=== PATIENT | male | born 1945 | race Caucasian/White ===

== ENCOUNTER 2019-07-04 10:30 | Outpatient (AMBR) | payer MEDICARE, SELFPAY ==
--- NOTE | 2019-06-16 15:10 | PT.OIERPT ---
PT OP Initial Eval Patient Information Visit Reasons: right shoulder pain Medical Diagnosis: Z47.89 Treatment Dx #1: Right Shoulder Pain Treatment Dx #2: Right Shoulder Mobility Deficits Start of Care: 06/16/19 Date of Onset: 05/21/19 Initial Assessment Subjective Pt is a 74 y/o male s/p right shoulder labral repair, biceps tenodesis, and subacromial decompression 05/21/19 secondary to shoulder injury. Pt still has pain (8/10) with all activities. Pt has limitation with overhead motions, lifting, chores, yardwork, self care, and recreational activities. Objective Right Shoulder AROM Flexion: 100 deg Abduction: 90 deg External Rotation: 60 deg Internal Rotation: 40 deg Right Shoulder PROM Flexion: 150 deg Abduction: 120 deg External Rotation: 70 deg Internal Rotation: 50 deg Right Shoulder MMTs: grossly 3-/5 Right Scapula MMTs: grossly 3-/5 Assessment Pt demonstrate right shoulder pain with mobility deficits s/p shoulder surgery leading to decline function. Pt will benefit from physical therapy to increase strength, mobility, and work on shoulder stability Short Term and Long-Term Goals 1) Increase right shoulder AROM WNL in 12 wks to be able to perform overhead motions 2) Increase right shoulder MMTs grossly to 4-/5 in 12 wks to be able to perform yardwork 3 Increase right scapula MMTs grossly to 3+/5 in 12 wks to be able to perform self care activities 4) Decrease shoulder pain to 2/10 in 12 wks to be able to sleep more than 6 hrs 5) Indep with HEP Treatment Plan 1) Manual Therapy 2) Therapeutic Activities 3) Therapeutic Exercises 4) Modalities (ice, heat, estim) Frequency and Duration 2 x wk for 12 wks Certification Dates: 06/16/19 to 09/15/19 Office Procedures PT Procedures PT Date of Service: 06/16/19 OP PT Eval Mod Complex 30 minutes: Yes
--- NOTE | 2019-06-18 13:02 | PT.ODAYNRPT ---
PT Outpatient Daily Note Date of Service: June 18, 2019 OP Daily Note Visit Reasons: right shoulder pain Outpatient Physical Therapy Treatment Date: 06/18/19 Subjective: Pt's shoulder sore after last time. Pt still has pain with overhead motions. Objective: Please see flow chart for list of ther ex performed Assessment: cues to submaximal contract with isometric exercise; increase AROM after AAROM exercises Plan: Continue with PT Length of Time (minutes) of Treatment: 30 Minutes Office Procedures PT Procedures PT Date of Service: 06/18/19 Therapeutic Exercise 30 minutes: Yes PT Procedures PT Date of Service: 06/16/19 OP PT Eval Mod Complex 30 minutes: Yes
--- NOTE | 2019-06-24 15:56 | PT.ODAYNRPT ---
PT Outpatient Daily Note Date of Service: June 24, 2019 OP Daily Note Visit Reasons: right shoulder pain Outpatient Physical Therapy Treatment Date: 06/24/19 Subjective: Pt's shoulder is sore and painful from trying to overhaul an engine. Pt felt better after last treatment session Objective: Please see flow chart for list of ther ex performed Assessment: tolerate exercises with minimal pain; frequent cues to work up to pain not into pain. One LOB with wand exercises due to closing his eyes Plan: Continue with PT Length of Time (minutes) of Treatment: 30 Minutes Office Procedures PT Procedures PT Date of Service: 06/18/19 Therapeutic Exercise 30 minutes: Yes PT Procedures PT Date of Service: 06/24/19 Therapeutic Exercise 30 minutes: Yes PT Procedures PT Date of Service: 06/16/19 OP PT Eval Mod Complex 30 minutes: Yes
--- NOTE | 2019-06-30 11:30 | PT.ODAYNRPT ---
PT Outpatient Daily Note Date of Service: June 30, 2019 OP Daily Note Visit Reasons: right shoulder pain Outpatient Physical Therapy Treatment Date: 06/30/19 Subjective: Pt has difficulty pulling up his pants. Pt's ROM seems better. Pt had a bad day the other day from lifting. Objective: Please see flow chart for list of ther ex performed Assessment: tolerate exercises with minimal pain; continue to improve with shoulder flexion and scaption AROM Plan: Continue with PT Length of Time (minutes) of Treatment: 30 Minutes Office Procedures PT Procedures PT Date of Service: 06/18/19 Therapeutic Exercise 30 minutes: Yes PT Procedures PT Date of Service: 06/24/19 Therapeutic Exercise 30 minutes: Yes PT Procedures PT Date of Service: 06/16/19 OP PT Eval Mod Complex 30 minutes: Yes PT Procedures PT Date of Service: 06/30/19 Therapeutic Exercise 30 minutes: Yes
--- NOTE | 2019-07-04 11:17 | PT.ODAYNRPT ---
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 Pt has stop wearing his sling and has been doing more with his arm at home inside and outside. Pt felt really good after last appt until sunday when he went to eat the buffet. Objective: Please see flow chart for list of ther ex performed Assessment: instructed patient to wear sling again to offload shoulder to decrease pain and strain to the bicep. Pt gave verbal consent; Pt's AAROM was less today due to proximal bicep pain Plan: Continue with PT Length of Time (minutes) of Treatment: 30 Minutes Office Procedures PT Procedures PT Date of Service: 06/18/19 Therapeutic Exercise 30 minutes: Yes PT Procedures PT Date of Service: 06/24/19 Therapeutic Exercise 30 minutes: Yes PT Procedures PT Date of Service: 06/16/19 OP PT Eval Mod Complex 30 minutes: Yes PT Procedures PT Date of Service: 06/30/19 Therapeutic Exercise 30 minutes: Yes PT Procedures PT Date of Service: 07/04/19 Therapeutic Exercise 30 minutes: Yes
== END 2019-07-08 23:59 | disposition home or self-care (01) ==
PROVIDERS: PCP Family Medicine; Referring Provider Family Medicine; Visit Provider Orthopaedic Surgery
DX: Z47.89 Encounter for other orthopedic aftercare (principal); M25.511 Pain in right shoulder
CPT/HCPCS: 97110; 97162